=== PATIENT | female | born 1990 | race Two or more races ===

== ENCOUNTER 2024-12-16 14:49 | Emergency (ER) | payer MEDICAID, OTHER ==
[~2024-12-16] VITALS: Ht 172.7 cm; Wt 113.1 kg
--- NOTE | 2024-12-16 15:36 | ED.PDOC ---
GI ASSESSMENT HPI Comments A 34-YEAR-OLD FEMALE WITH NO REPORTED PMHx PRESENTS WITH A CHIEF COMPLAINT OF ABDOMEN PAIN X 1 WEEK WITH ASSOCIATED MILD NAUSEA. PATIENT STATES THAT HER ABDOMEN IS HURTING TO HER PERIUMBILICAL REGION, NONRADIATING, FEELS LIKE A "LUMP", AND RATES HER PAIN A 5/10 WHEN TOUCHED. PATIENT REPORTS THAT SHE GOT A IN AUGUST 2024 TO THE AREA WHERE IT IS PAINFUL AND WHERE SHE CAN FEEL A LUMP, POSSIBLE ABD WALL HERNIA. PATIENT REPORTS NAUSEA, BUT DENIES ANY ACTIVE VOMITING, FEVER, HEADACHE, DIZZINESS AND OTHER COMPLAINTS. NO OTHER SYMPTOMS REPORTED AT THIS TIME OF CARE. Chief Complaint: Abdominal Pain Time Seen by MD: 15:28 Reviewed Notes: Nurses Notes, Medications, Allergies Home Meds Active Scripts Tamsulosin Hcl (Flomax) 0.4 Mg Cap, 1 CAP PO DAILY, #30 CAP Prov:LANI STEINER 12/16/24 Ibuprofen (Ibuprofen) 800 Mg Tab, 1 TAB PO TID, #30 TAB Prov:LANI STEINER 12/16/24 Information Source: Patient Mode of Arrival: Ambulatory Timing: Days Duration: Since onset Prehospital treatment: None Quality: Aching, Cramping, Colicky Vomitus: None Stool: Normal Severity: Mild, Moderate Recent: None Recent Hx of: Abdominal Surgery ( IN AUGUST 2024) Pain Location: Periumbilical Associated sign and symptoms: Abdominal Pain Past Medical History PAST MEDICAL HISTORY: Denies Surgical History: WELDER PLASMA ARC History: Denies all WELDER PLASMA ARC Hx Family History Family History: Reviewed,noncontributory to illness Social History Smoker: Non-Smoker Alcohol: Denies ETOH Use Drugs: Denies Drug Use Lives In: Home Constitutional: denies: chills, diaphoresis, fatigue, fever, malaise, sweats, weakness, others EENTM: denies: blurred vision, double vision, ear bleeding, ear discharge, ear drainage, ear pain, ear ringing, eye pain, eye redness, hearing loss, mouth pain, mouth swelling, nasal discharge, nose bleeding, nose congestion, nose pain, photophobia, tearing, throat pain, throat swelling, voice changes, others Respiratory: denies: cough, hemoptysis, orthopnea, SOB at rest, shortness of breath, SOB with excertion, stridor, wheezing, others Cardiovascular: denies: chest pain, dizzy spells, diaphoresis, Dyspnea on exertion, edema, irregular heart beat, left arm pain, lightheadedness, palpitations, PND, syncope, others Gastrointestinal: reports: abdominal pain, nausea; denies: abdomen distended, blood streaked bowels, constipated, diarrhea, dysphagia, difficulty swallowing, hematemesis, melena, poor appetite, poor fluid intake, rectal bleeding, rectal pain, vomiting, others Genitourinary: denies: abnormal vagina bleeding, burning, dyspareunia, dysuria, flank pain, frequency, hematuria, incontinence, pain, , vagina discharge, urgency, others Neurological: denies: dizziness, fainting, headache, left sided numbness, left sided weakness, numbness, paresthesia, pre-existing deficit, right sided numbness, right sided weakness, seizure, speech problems, tingling, tremors, weakness, others Musculoskeletal: denies: back pain, gout, joint pain, joint swelling, muscle pain, muscle stiffness, neck pain, others Integumetry: denies: bruises, change in color, change in hair/nails, dryness, laceration, lesions, lumps, rash, wounds, others Allergic/Immunocompromised: denies: Difficulty Healing, Frequent Infections, Hives, Itching, others Hematologic/Lymphatic: denies: anemia, blood clots, easy bleeding, easy bruising, swollen glands, others Endocrine: denies: excessive hunger, excessive sweating, excessive thirst, excessive urination, flushing, intolerance to cold, intolerance to heat, unexplained weight gain, unexplained weight loss, others Psychiatric: denies: anxiety, bipolar disorder, depression, hopeless, panic disorder, schizophrenia, sleepless, suicidal, others All Other Systems: Reviewed and Negative Physical Exam General Appearance: No Apparent Distress, Obese HEENT: Normal ENT Inspection, PERRL/EOMI, Pharynx Normal, TMs Normal Neck: Full Range of Motion, Non-Tender, Normal, Normal Inspection Respiratory: Chest Non-Tender, Lungs Clear, No Accessory Muscle Use, No Respiratory Distress, Normal Breath Sounds Cardiovascular: No Edema, No JVD, No Murmur, No Gallop, Normal Peripheral Pulses, Regular Rate/Rhythm Breast Exam: Deferred Gastrointestinal: Hernia (A FEW SMALL BUMPS PALPABLE, ABD WALL HERNIA?? TENDERNESS ON UMBILICAL REGION WITH A SMALL UMBILICAL HERNIA, REDUCABLE, NO ST RONGULATED. ), No Organomegaly, No Pulsatile Mass, Normal Bowel Sounds, Soft, Tenderness (LOWER ABD, NO GUARDING AND REBOUND TENDERNESS. ) Genitalia: Deferred Pelvic: Deferred Rectal: Deferred Extremities: No calf tenderness, Normal capillary refill, Normal inspection, Normal range of motion, Non-tender, No pedal edema Musculoskeletal : Apperance: Normal Neurologic: Alert, pesticide use medical coordinator II-XII nml as Tested, No Motor Deficits, Normal Affect, Normal Mood, No Sensory Deficits Cerebellar Function: Normal Reflexes: Normal Skin: Dry, Normal Color, Warm Peripheral Pulses: 2+ carotid (R), 2+ carotid (L) Lymphatic: No Adenopathy Was a procedure done? Was a procedure done?: No GI differential Dx Differential Diagnosis: Appendicitis, Gastritis/PUD, Gastroenteritis, Hernia, Urolithiasis X-Ray, Labs, Meds, VS Vital Signs Date Time Temp Pulse Resp B/P (MAP) Pulse Ox O2 Delivery O2 Flow Rate FiO2 12/16/24 14:51 97.7 71 16 121/81 100 97.7 PATIENT: ALINA SALGUERO DIANEACCT: [id number]: [id number] : 1990 LOC: ER ROOM / BED: / AGE / SEX: 34 / F ADM STATUS: REG ER SERVICE [id number] ORDERING PHYSICIAN: LANI STEINER PROCEDURE(s): ABPL - CT AB PEL WO CON-NO ORAL OR IV REASON: IN AUGUST, LOWER ABD PAIN, POSSIBLE ABD HERNIA ORDER NUMBER(s): [id number], ACCESSION NUMBER(s): [id number] Exam: CT CT AB PEL WO CON-NO ORAL OR IV History: IN AUGUST, LOWER ABD PAIN, POSSIBLE ABD HERNIA Comparison Study: None TECHNIQUE: Multidetector CT of the abdomen AND PELVIS without IV contrast. Axial, coronal and sagittal multiplanar reformats were obtained from the axial data set by the technologist. Radiation Dose Information: CT Dose: CTDI volume is 25.24 mGy. Dose-length product is 1460.59 mGy*cm FINDINGS: Left basilar linear atelectasis. Partially visualized heart is unremarkable. Mild hepatomegaly. Otherwise, liver, spleen, pancreas and adrenal glands unremarkable. Cholelithiasis without evidence of acute cholecystitis. Nonobstructing bilateral renal calculi. Largest on the right measuring up to 5 mm with a 3 mm left renal lower pole calculus. No Hydronephrosis bilaterally. The visualized ureters unremarkable. Urinary bladder is unremarkable. 2.6 cm right ovarian cyst. Otherwise, Uterus and adnexa unremarkable. Stomach is unremarkable. Small bowel loops unremarkable. Appendix is unremarkable. Mild wall thickening of the transverse colon. The remainder of the large bowel is unremarkable. No evidence of intraperitoneal free air or free fluid. No evidence of aortic aneurysm or dissection. [id number] abdominal wall subcutaneous fat stranding. Small fat containing umbilical hernia. Infraumbilical hernia containing partial wall of adjacent small bowel without evidence of obstruction or strangulation. Partially imaged bilateral breast implants. No evidence of acute osseous abnormalities. Injection granulomas are noted over The bilateral gluteal region subcutaneous fat. Fatty densities within the posterior perineal region which may represent fatty necrosis, largest measuring up to 4 cm. IMPRESSION: Mild wall thickening of the transverse colon which may be due to inadequate distention with mild Colitis not excluded. Small infraumbilical hernia containing partial wall of the adjacent small bowel without evidence of obstruction or strangulation. Small fat containing umbilical hernia. Nonobstructing bilateral renal calculi. ATED BY: RUKHSANA LIVINGSTON DO DICTATED DATE/TIME: 12/16/241634 SIGNED BY: RUKHSANA LIVINGSTON DO SIGNED DATE/TIME: 12/16/241634 CC: X-Ray, Labs, Meds, VS Comment EXTERNAL MEDICAL RECORDS REVIEWED: [NONE] INDEPENDENT HISTORIANS: [NONE] SOCIAL DETERMINANTS OF HEALTH: [NONE] LABS ORDERED: NONE REVIEWED AND INTERPRETED RESULTS: NONE IMAGING ORDERED: NONE TREATMENTS ORDERED: PROCEDURES PERFORMED: NONE CRITICAL CARE TIME: NONE I HAVE DISCUSSED THE PATIENT WITH THE ATTENDING PHYSICIAN, DR. TRISTA BILLY, AND SHE AGREES WITH THE PATIENT'S PLAN OF CARE AND DISPOSITION. BASED ON HISTORY OF PRESENT ILLNESS, AND PHYSICAL EXAM, PATIENT WILL BE DISCHARGED HOME. DISCUSSED PLAN FOR DISCHARGE HOME WITH RX [MOTRIN AND FLOMAX]. MEDICATION WARNINGS GIVEN. SHARED DECISION MAKING: DISCUSSED WITH PATIENT THAT THEIR WORKUP WAS NORMAL. PATIENT INSTRUCTED TO FOLLOW UP WITH PRIMARY CARE PROVIDER IN 1-2 DAYS FOR RE- EVALUATION OF SYMPTOMS. PATIENT VERBALIZES UNDERSTANDING TO RETURN TO ED FOR NEW OR WORSENING SYMPTOMS OR IF FOLLOW UP WITH PCP CANNOT BE OBTAINED. PATIENT FEELS COMFORTABLE GOING HOME AT THIS TIME. ALL QUESTIONS ADDRESSED AT TIME OF DISCHARGE. Images Reviewed?: Images reviewed and evaluated by me Time of 1ST Reevaluation: 17:20 Reevaluation 1ST: Improved Patient Education/Counseling: Diagnosis, Treatment, Need For Follow Up Family Education/Counseling: Diagnosis, Treatment, Need For Follow Up Medical Screening: No EMC Exist At This Time SEPSIS Sepsis Screen Date sepsis recognized/suspect: Dec 16, 2024 Time Sepsis recognized/suspect: 3 Recent Procedure: No On Antibiotic Therapy: No Respiratory Rate >20: No Heart Rate >90: No Temp<36 C (96.8 F) or >38.3 C: No SBP <90 or MAP <65 mmHG: No New Acute Mental Status Change: No Is the patient on CPAP, BIPAP,: No Physician Orders Ct Ab Pel Wo Con-No Oral Or Iv (12/16/24 15:31) Ketorolac Injection (Toradol Injection) (12/16/24 17:00) Vital Signs Date Time Temp Pulse Resp B/P (MAP) Pulse Ox O2 Delivery O2 Flow Rate FiO2 12/16/24 14:51 97.7 71 16 121/81 100 97.7 Departure 1 Departure Time of Disposition: 17:20 Impression: Primary Impression: Hernia of abdominal wall Additional Impressions: Umbilical hernia Qualified Codes: K42.9 - Umbilical hernia without obstruction or gangrene Bilateral renal stones Disposition: 01 HOME / SELF CARE / HOMELESS Condition: Stable Additional Instructions: FOLLOW-UP WITH PCP IN 1 TO 2 DAYS. TAKE MEDICATIONS PRESCRIBED. RETURN TO ED FOR ANY NEW OR WORSENING SYMPTOMS. e-Prescriptions Tamsulosin Hcl (Flomax) 0.4 Mg Cap 1 CAP PO DAILY, #30 CAP Prov: LANI STEINER 12/16/24 Ibuprofen (Ibuprofen) 800 Mg Tab 1 TAB PO TID, #30 TAB Prov: LANI STEINER 12/16/24 Discharged With: Self Critical Care Note Critical Care Time?: No Stability Stability form required: No Heart Score Heart Score: Heart Score Response (Comments) Value History N/A 0 EKG N/A 0 Age N/A 0 Risk Factors N/A 0 Troponin N/A 0 Total 0 I personally scribed for LANI STEINER ([email or web address]) on 12/16/24 at 15:36. Electronically submitted by Jaciel Dumont ([email or web address]). LANI STEINER Dec 16, 2024 15:36
--- NOTE | 2024-12-16 16:37 | DVH ---
Exam: CT CT AB PEL WO CON-NO ORAL OR IV History: IN AUGUST, LOWER ABD PAIN, POSSIBLE ABD HERNIA Comparison Study: None TECHNIQUE: Multidetector CT of the abdomen AND PELVIS without IV contrast. Axial, coronal and sagitta l multiplanar reformats were obtained from the axial data set by the technologist. Radiation Dose Information: CT Dose: CTDI volume is 25.24 mGy. Dose-length product is 1460.59 mGy*cm FINDINGS: Left basilar linear atelectasis. Partially visualized heart is unremarkable. Mild hepatomegaly. Otherwise, liver, spleen, pancreas and adrenal glands unremarkable. Cholelithiasis without evidence of acute cholecystitis. Nonobstructing bilateral renal calculi. Largest on the right measuring up to 5 mm with a 3 mm left r enal lower pole calculus. No Hydronephrosis bilaterally. The visualized ureters unremarkable. Urinary bladder is unremarkable. 2.6 cm right ovarian cyst. Otherwise, Uterus and adnexa unremarkable. Stomach is unremarkable. Small bowel loops unremarkable. Appendix is unremarkable. Mild wall thicken ing of the transverse colon. The remainder of the large bowel is unremarkable. No evidence of intraperitoneal free air or free fluid. No evidence of aortic aneurysm or dissection. [id number] abdominal wall subcutaneous fat stranding. Small fat containing umbilical hernia. In fraumbilical hernia containing partial wall of adjacent small bowel without evidence of obstruction o r strangulation. Partially imaged bilateral breast implants. No evidence of acute osseous abnormaliti es. Injection granulomas are noted over The bilateral gluteal region subcutaneous fat. Fatty densitie s within the posterior perineal region which may represent fatty necrosis, largest measuring up to 4 cm. IMPRESSION: Mild wall thickening of the transverse colon which may be due to inadequate distention with mild Coli tis not excluded. Small infraumbilical hernia containing partial wall of the adjacent small bowel without evidence of o bstruction or strangulation. Small fat containing umbilical hernia. Nonobstructing bilateral renal calculi.
[2024-12-16] MEDS ORDERED: TAMS-35 PO (17:00)
[2024-12-16] MEDS ORDERED: IBUP-1456 PO (17:00)
[2024-12-16] MEDS: KETOROLAC TROMETH 60MG/2ML VIAL IM ONE (17:04)
[2024-12-16 17:08] VITALS: BP 132/89; PULSE 71; RESP 18; TEMP 98.1; O2SAT 99
== END 2024-12-16 17:12 | disposition home or self-care (01) ==
LOC: ER 14:49
DX: K42.9 Umbilical hernia without obstruction or gangrene (principal); N20.0 Calculus of kidney; Z79.899 Other long term (current) drug therapy
CPT/HCPCS: 74176; 96372; 99285; J1885

== ENCOUNTER 2025-02-01 07:10 | Day surgery (SDC) | payer MEDICAID ==
[2025-01-29 11:23] LABS: Hematocrit 36.6 % (36.0-46.0); Hemoglobin 11.9 g/dL (12.2-16.2); Mean Corpuscular Hemoglobin 25.7 pg (28.0-32.0); Mean Corpuscular Volume 79.0 fL (80.0-100.0); Nucleated Red Blood Cells % 0.2 %
[2025-01-29 11:34] LABS: Urine Protein, UAD Negative (Negative)
[2025-01-29 11:36] LABS: INR 1.0 (0.9-1.15); Partial Thromboplastin Time 26.2 SEC (24.5-34.5); Prothrombin Time 10.6 sec (9.3-11.8)
[2025-01-29 12:38] LABS: Alanine Aminotransferase 14 U/L (7-40); Albumin 4.0 g/dL (3.2-4.8); Alkaline Phosphatase 77 U/L (46-116); Anion Gap 10 (5-15); BUN/Creatinine Ratio 26.2 (10.0-20.0); Bilirubin, Total 0.3 mg/dL (0.2-1.0); Blood Urea Nitrogen 11 mg/dL (9-23); Calcium 9.1 mg/dL (8.7-10.4); Carbon Dioxide 26 mmol/L (20-31); Chloride 105 mmol/L (98-107); Glucose 95 mg/dL (74-106); Potassium 4.2 mmol/L (3.5-5.1); Sodium 141 mmol/L (136-145); Total Protein 7.1 g/dL (5.7-8.2)
[~2025-02-01] VITALS: Ht 172.7 cm; Wt 107.5 kg
[~2025-02-01 07:10] MED LIST: PHEN-1325 PO
[2025-02-01] MEDS ORDERED: PHENYLEPHRINE HCL 10 MG/ML VL IV ONE (07:11)
[2025-02-01] MEDS ORDERED: LIDOCAINE 2% JELLY 11ml (GLYDO) ONE (07:25)
[2025-02-01] MEDS ORDERED: ceFAZolin 2 GM/D5W50ml 50 ML IV ONE (07:27)
[2025-02-01] MEDS ORDERED: MIDAZOLAM HCL 2MG/2ML 2ml VIAL (1mg/ml) ONE (08:08)
[2025-02-01] MEDS ORDERED: fentaNYL CITRATE 100 MCG/2 ML VL ONE ×2 (08:08→11:35)
[2025-02-01] MEDS ORDERED: HYDROmorphone HCL 2 MG/ML VL/or syr ONE (08:08)
[2025-02-01] MEDS ORDERED: PROPOFOL 10 MG/ML 20 ML IV ONE (08:22)
[2025-02-01] MEDS ORDERED: KETOROLAC TROMETH 30 MG/ML 1ML VIAL IV ONE (10:30)
[2025-02-01] MEDS ORDERED: HYDROmorphone HCL 2 MG/ML VL/or syr IV PRN (10:30)
[2025-02-01] MEDS ORDERED: MORPHINE SULFATE 4 MG/ML SYR/VIAL IV PRN (10:30)
[2025-02-01] MEDS ORDERED: hydrALAZINE HCL 20 MG/ML VL IV PRN (10:30)
[2025-02-01] MEDS ORDERED: MIDAZOLAM HCL 2MG/2ML 2ml VIAL (1mg/ml) IV PRN (10:30)
[2025-02-01] MEDS ORDERED: ONDANSETRON HCL 4 MG/2 ML VIAL IV PRN (10:30)
[2025-02-01] MEDS: BUPIVACAINE 0.25% INJ 50ML VIAL ONE (10:46)
[2025-02-01 13:48] VITALS: PULSE 98; RESP 12; TEMP 98.4
[2025-02-01] MEDS ORDERED: PERCOT PO (13:53)
[2025-02-01] MEDS ORDERED: ACETAMINOPHEN IV 100 ML IV ONE (13:57)
[2025-02-01] MEDS: ACETAMINOPHEN IV 1000 MG/100ML (10MG/ML) IV ONE (13:59)
[2025-02-01 14:55] VITALS: BP 123/82; PULSE 83; RESP 14; O2SAT 96
--- NOTE | 2025-02-03 11:47 | DVHOP2 ---
Operative Report - 2 Report Details Date: 02/01/25 Preop Diagnosis: Ventral incisional hernia Postop Diagnosis: Ventral incisional hernia Surgeon: Tony Alfredo MD Anesthesiologist: Dr. Welch Anesthesia: General Implant: Symbotex 12 cm in diameter mesh Consent: The patient was informed of the risks and benefits of the procedure. These include but are not limited to complications of anesthesia, postoperative infection, incomplete relief of symptoms, recurrence of symptoms, damage to blood vessels, nerves and tendons, deep venous thrombosis, pulmonary embolism and possible need for repeat surgery in the future. Complications: None Estimated Blood Loss: 5ml Findings: Thick abdominal wall due to plication from previous surgery (abdominoplasty). Umbilical hernia defect measured 4 x 3 cm, small intestine containing, with dense hernia sac adhesions to the abdominal wall and subcutaneous tissue. Indications for Surgery: Ventral incisional hernia causing pain and discomfort Name of Procedure Performed Open ventral incisional hernia repair with mesh Procedure Details Procedure Details: Upon arriving to the operating room the patient was transferred to the operating table and placed in the supine position with arms extended. General endotracheal anesthesia was induced. Time-out was observed. She was prepped and draped in the standard sterile surgical fashion with chlorhexidine. I then proceeded to make a midline vertical incision that extended from several cm below the umbilicus to several cm above the umbilicus. I then dissected carefully down to fascia, both bluntly and with cautery, the entire length of the incision. I then encountered the hernia sac at the level of the umbilicus. I then proceeded to lyse the dense adhesions between the hernia sac, and the fascia/subcutaneous tissue. Once the hernia sac was completely free from the subcutaneous tissue, I decided to open the hernia sac, given that it was very densely adhered to the fascial defect edges. At this point I noted that the sac contained small bowel. The small bowel was returned into the peritoneal cavity. I then decided to transect the hernia sac. Hernia defect measured 4 cm x 3 cm. I then finger swept in the peritoneal cavity around the fascial defect and I encountered some adhesions around the 1 to 2 o'clock position. Adhesions were due to omentum. I lysed these adhesions both bluntly and sharply. Now I had a smooth landing zone without any adhesions around the fascial defect for the mesh. I then utilized a Symbotex 12 cm in diameter mesh for the repair. Mesh was placed in underlay fashion and held in place with 0 Prolene interrupted sutures circumferentially. The interrupted sutures were trans fascial. Placing the mesh and the sutures was very cumbersome given that her fascia was so tight and thick from the previous surgery. Sutures were then tied and mesh laid flat without any gaps against the abdominal wall. I then proceeded to close the fascia with interrupted 0 Prolene sutures. The wound and obtain hemostasis with cautery. I then reattached the umbilicus stalk to the fascia with 2 interrupted 2-0 Vicryl sutures. I then closed the deep dermis with a running 3-0 Vicryl. Skin was closed with running 4-0 Monocryl subcuticular fashion. Dermabond was placed over the incision. All counts were complete and correct at the end of the procedure. Marcaine 0.25% was used as local anesthetic. Patient tolerated the procedure well and was transferred to PACU in stable condition. Specimen: Hernia sac Condition Stable Disposition Home TONY LESTER MD Feb 01, 2025 13:57
== END 2025-02-01 15:35 | disposition home or self-care (01) ==
LOC: SUR 07:10
PROVIDERS: ATTEND Student in an Organized Health Care Education/Training Program
DX: K43.2 Incisional hernia without obstruction or gangrene (principal); K43.9 Ventral hernia without obstruction or gangrene; E66.9 Obesity, unspecified; Z68.36 Body mass index [BMI] 36.0-36.9, adult; Z79.899 Other long term (current) drug therapy; Z98.890 Other specified postprocedural states; Z88.8 Allergy status to other drugs, medicaments and biological substances
CPT/HCPCS: 36415; 49593; 80053; 81001; 81025; 85025; 85610; 85730; 86850; 86900; 86901; 88302; C1781; J0690; J1100; J1171; J2250; J2371; J2704; J3010; J0131; J3490